=== PATIENT | male | born 1980 | race Caucasian/White ===

== ENCOUNTER 2018-03-03 20:12 | Emergency (ER) | payer OTHER ==
[~2018-03-03] VITALS: Ht 180.3 cm; Wt 80.7 kg
[~2018-03-03 20:12] MED LIST: ENDOCET 5-3251 EACH PO; FLOMAX0.4 MG PO; HYDROCODON-ACE1 EAC7 PO; NAPROSYN500 MG PO
[2018-03-03 22:00] VITALS: BP 155/77
== END 2018-03-03 22:00 | disposition home or self-care (01) ==
LOC: RME 20:12 → EME 20:12 → RME 22:00
DX: T18.128A Food in esophagus causing other injury, initial encounter (principal); Z87.442 Personal history of urinary calculi
CPT/HCPCS: 70360; 99281; 99284